=== PATIENT | female | born 2000 | race Caucasian/White ===

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

== ENCOUNTER 2022-08-24 13:20 | Emergency (ER) | payer BC, SELFPAY ==
--- NOTE | 2022-08-24 13:24 | ED.URI ---
HPI - URI/Sore Throat General Chief Complaint: Upper Respiratory Infection Stated Complaint: Sore Throat Time Seen by Provider: 08/24/22 13:24 Source: patient Mode of arrival: ambulatory Limitations: no limitations History of Present Illness HPI Narrative: Lexi is a 22-year-old female patient presenting to the clinic today with complaints sore throat x2 days. She reports no fever or chills. MD elicited complaint: sore throat and nasal congestion Related Data Home Medications Medication Instructions Recorded Confirmed No Home Medications 08/24/22 08/24/22 Allergies Allergy/AdvReac Type Severity Reaction Status Date / Time No Known Allergies Allergy Verified 08/24/22 13:33 Review of Systems Review of Systems: Pertinent positives per HPI. Patient denies any fever, chills, rash, headache, visual changes, dizziness, cough, shortness of breath, chest pain, palpitations, nausea, vomiting, diarrhea, constipation, abdominal pain, or any urinary issues. PMFSH Comments At the time of my signature, I reviewed and agree with the nursing past medical, surgical, social, and family history. There is no relevant family history pertinent to the patient complaint. Exam Narrative: General: Well-developed, well nourished, in no apparent distress Head: Normocephalic, atraumatic Eyes: Pupils equally round and reactive to light bilaterally, EOM intact, sclera and conjunctive clear, no discharge, lids normal Ears: TMs intact and clear, ear canals clear, no drainage, grossly hearing normal. Nose: Nares patent, clear nasal discharge, no inflammation, no sinus tenderness. Mouth: Oral pharynx without lesions or masses, good dentition, MMM. oropharynx red Neck: Supple, trachea midline, no enlargement of anterior or posterior cervical nodes, no thyroid masses or goiter palpable. Cardio: Regular rate and rhythm, s1 and s2 normal, no murmur appreciated. Resp: Clear to auscultation bilaterally, no rhonchi, rales, wheezing or rubs Course Course Emergency Course: Portions of this record may have been created with voice recognition software. Level of Care: Express Care Visit Vital Signs Vital signs: Vital Signs Temperature 36.7 C 08/24/22 13:30 Pulse Rate 72 08/24/22 13:30 Respiratory Rate 18 08/24/22 13:30 Blood Pressure 113/69 08/24/22 13:30 Pulse Oximetry 100 08/24/22 13:30 Temperature 36.7 C 08/24/22 13:30 Pulse Rate 72 08/24/22 13:30 Respiratory Rate 18 08/24/22 13:30 Blood Pressure 113/69 08/24/22 13:30 Pulse Oximetry 100 08/24/22 13:30 Vital signs reviewed MDM - URI/Sore Throat MDM Narrative Medical decision making narrative: At the time of visit patient is resting comfortably on the exam table. Strep screen was completed in the clinic today.Supportive measures were discussed with the patient she voiced understanding discharge instructions agrees to treatment plan. Differential Diagnosis Differential diagnosis: Likely upper respiratory infection, otitis media, sinusitis, viral infection, bronchitis, influenza, pharyngitis and other ( COVID) Lab Data Labs: Strep Screen Presumptive Negative *(Reference Range: Negative)* Discharge Plan Discharge Clinical Impression: Pharyngitis Qualifiers: Pharyngitis/tonsillitis etiology: unspecified etiology Qualified Code(s): J02.9 - Acute pharyngitis, unspecified Patient Disposition: Home, Self-Care Condition: Stable Instructions: Antibiotic Form, Pharyngitis (ED) Additional Instructions: Strep screen was negative in the clinic today. We will send strep culture to the lab if this comes back positive we will contact you will place you on antibiotics at that time. Increase fluids and stay well hydrated Tylenol/motrin for pain/fever Flonase and OTC antihistamines as directed Vicks vapor rub to open sinuses Sinus rinses for congestion Cepacol spray, co
[2022-08-24 13:30] VITALS: BP 113/69; PULSE 72; RESP 18; TEMP 36.7; O2SAT 100
== END 2022-08-24 14:00 | disposition home or self-care (01) ==
PROVIDERS: Emergency Provider Nurse Practitioner Family; PCP Nurse Practitioner Family
DX: J02.9 Acute pharyngitis, unspecified (principal)
CPT/HCPCS: 87081; 87880; 99213; G0463

== ENCOUNTER 2022-11-15 11:49 | Emergency (ER) | payer BC, SELFPAY ==
[2022-11-15 11:56] VITALS: BP 125/84; PULSE 88; RESP 14; TEMP 37.2; O2SAT 99
--- NOTE | 2022-11-15 12:20 | ED.FEMALEGU ---
HPI - Female Genitourinary General Chief complaint: Urogenital-Female Stated complaint: blood in urine Time Seen by Provider: 11/15/22 12:21 Source: patient, RN notes reviewed and old records reviewed Mode of arrival: ambulatory Limitations: no limitations History of Present Illness HPI Narrative: 22-year-old female who presents to [facility] Care with complaints of urinary burning, frequency, with suprapubic tenderness, some CVA tenderness and blood noted in her urine with symptoms starting this morning. Patient reports that she has taken some Ibuprofen for her discomfort with minimal decrease in her discomfort.Patient reports no vaginal drainage or any itching,denies any concern for STD exposure. Patient denies any nausea or vomiting or any diarrhea. MD elicited complaint: UTI Onset (ago): day(s) (this morning) Severity scale (1-10): 5 Vaginal discharge: none Treatment prior to arrival: NSAIDs Related Data Allergies Allergy/AdvReac Type Severity Reaction Status Date / Time No Known Allergies Allergy Verified 08/24/22 13:33 Review of Systems Review of Systems: CONSTITUTIONAL: Denies fever, chills, or sweats. CARDIOVASCULAR: Denies chest pain, palpitations, or edema. RESPIRATORY: Denies cough or dyspnea. GASTROINTESTINAL: Reports suprapubic tenderness, no nausea, vomiting, or diarrhea. GENITOURINARY: Reports dysuria, frequency, urgency. Reports flank pain and hematuria. SKIN: Denies rash or itching. MUSCULOSKELETAL: Reports lower back pain or myalgia. reports CVA tenderness, hematuria NEUROLOGIC: Denies headache All systems reviewed & are unremarkable except as noted in HPI and below PMFSH Past Medical History Medical History UTI (urinary tract infection) Social History Social History Smoking status: Never smoker Alcohol intake: current Alcohol use details: social Substance use type: does not use Gender identity (if verbalized by the patient): Female Comments At time of signature, agree with nursing past medical, surgical, social and family history. There is no relevant family history pertinent to the presenting complaint Exam Narrative: GENERAL: Well-appearing, well-nourished, and in no acute distress. HEAD: Normocephalic, atraumatic. NECK: Supple.no lymphadenopathy CHEST: Clear to auscultation. No respiratory distress. HEART: Regular rate and rhythm. No murmur heard. Normal peripheral pulses. ABDOMEN: Soft, supra pubic tenderness, nondistended, normal active bowel sounds. positive CVA tenderness EXTREMITIES: Normal range of motion. No edema. SKIN: Warm, dry, no rash. NEURO: No focal deficits. Alert and oriented x3. Course Course Emergency Course: Patient is aware of diagnosis, understands and agrees to treatment plan.? Anticipatory guidance given.? Patient agrees to follow-up as directed and is aware of reasons to seek care at the emergency department. Portions of this record may have been created with voice recognition software Level of Care: Express Care Visit Vital Signs Vital signs: Vital Signs Temperature 37.2 C 11/15/22 11:56 Pulse Rate 88 11/15/22 11:56 Respiratory Rate 14 11/15/22 11:56 Blood Pressure 125/84 11/15/22 11:56 Pulse Oximetry 99 11/15/22 11:56 Oxygen Delivery Room Air 11/15/22 11:56 Temperature 37.2 C 11/15/22 11:56 Pulse Rate 88 11/15/22 11:56 Respiratory Rate 14 11/15/22 11:56 Blood Pressure 125/84 11/15/22 11:56 Pulse Oximetry 99 11/15/22 11:56 Oxygen Delivery Room Air 11/15/22 11:56 MDM - Female Genitourinary MDM Narrative Medical decision making narrative: Exam findings and UA show no acute concerns or changes; patient is non-toxic appearing and is in no distress.? Patient is appropriate for outpatient treatment and follow-up. Differential Diagnosis Differential diagnosis: Likely urinary tract infection and cysti
== END 2022-11-15 12:37 | disposition home or self-care (01) ==
PROVIDERS: Emergency Provider Registered Nurse; PCP Nurse Practitioner Family
DX: N39.0 Urinary tract infection, site not specified (principal)
CPT/HCPCS: 81003; 87077; 87086; 87186; 99213; G0463

== ENCOUNTER 2023-02-03 13:20 | Emergency (ER) | payer BC, SELFPAY ==
[2023-02-03 13:25] VITALS: BP 137/69; PULSE 108; RESP 20; TEMP 37.4; O2SAT 100
--- NOTE | 2023-02-03 13:35 | ED.SKABFB ---
HPI - Skin/Abscess/Foreign Bdy General Chief complaint: Skin/Abscess/Foreign Body Stated complaint: Rash Source: patient and RN notes reviewed History of Present Illness HPI narrative: 22-year-old female presents urgent care with a rash x1 week. Patient states that it started out with a lesion to right lower leg and left forearm. Patient states she has associated itching at these areas and did scratch them. Patient states since then the blister and ?opened up. Pt has developed hive-like lesions to arms, legs, neck, and face. Denies any fevers, chills, vomiting, chest pain, or SOB. Pt has been using cortisone cream without relief. Denies any new medications, foods, lotions, or soaps. Pt does admit to having a dog who likes to roll around in the brush at her house. Related Data Allergies Allergy/AdvReac Type Severity Reaction Status Date / Time No Known Allergies Allergy Verified 02/03/23 13:33 Review of Systems Review of Systems: Pertinent positives and pertinent negatives per HPI. [facility] Past Medical History Medical History UTI (urinary tract infection) Social History Social History Smoking status: Never smoker Alcohol intake: current Alcohol use details: social Substance use type: does not use Gender identity (if verbalized by the patient): Female Comments At the time of my signature, I reviewed and agree with the nursing past medical, surgical, social, and family history. There is no relevant family history pertinent to the patient complaint. Exam Narrative: GENERAL: This is a well-nourished, well-developed patient, in no apparent distress. HEAD: normocephalic, atraumatic. EYES: Sclera clear/white. Vision is grossly intact. EARS: External ears normal, auditory canals clear and without drainage, TMs normal without perforation. Hearing grossly intact. NOSE: External nose normal with no obvious nasal discharge, nares without redness, no rhinorrhea. THROAT: Mucous membranes moist, posterior pharynx clear. NECK: Neck supple, non-tender without lymphadenopathy, masses or thyromegaly. CARDIOVASCULAR: Regular rate and rhythm without murmurs, gallops, or rubs. RESPIRATORY: Clear to auscultation. Breath sounds equal bilaterally. No wheezes, rales, or rhonchi. GASTROINTESTINAL: Abdomen soft, non-tender, nondistended. Bowel sounds are active. No hepato-splenomegaly, or palpable masses. No guarding. SKIN: various, erythremic, hives, and scabbed areas to body. 2 cm area noted to right lower leg and left FA. No drainage noted. no areas of induration noted. NEURO: awake, alert, and oriented to person, place and time. There were no obvious focal neurologic abnormalities. EXTREMITIES: No clubbing, cyanosis, or edema. No joint tenderness, effusion, or edema noted. BACK: Nontender without deformity or crepitus. No flank tenderness. Course Course Level of Care: Express Care Visit Vital Signs Vital signs: Vital Signs Temperature 99.4 F 02/03/23 13:25 Pulse Rate 108 H 02/03/23 13:25 Respiratory Rate 20 02/03/23 13:25 Blood Pressure 137/69 02/03/23 13:25 Pulse Oximetry 100 02/03/23 13:25 Oxygen Delivery Room Air 02/03/23 13:25 Temperature 99.4 F 02/03/23 13:25 Pulse Rate 108 H 02/03/23 13:25 Respiratory Rate 20 02/03/23 13:25 Blood Pressure 137/69 02/03/23 13:25 Pulse Oximetry 100 02/03/23 13:25 Oxygen Delivery Room Air 02/03/23 13:25 Reviewed MDM - Skin/Abscess/Foreign Bdy MDM Narrative Medical decision making narrative: Prevention is always better than treatment. Learn to identify poison junito, oak, and sumac and avoid it. Wear long sleeves, long pants, shoes, and socks. If you touched the plant, try to keep your hands away from your eyes, mouth, and face. Wash the skin thoroughly with soap and cool water as soon as possible. Scrub under the fingernails wit
[2023-02-03] MEDS: predniSONE 20 MG TABLET 60 MG PO (13:45)
== END 2023-02-03 13:48 | disposition home or self-care (01) ==
PROVIDERS: Emergency Provider Nurse Practitioner Family; PCP Nurse Practitioner Family
DX: L25.9 Unspecified contact dermatitis, unspecified cause (principal)
CPT/HCPCS: 99213; G0463; J7512

== ENCOUNTER 2023-04-18 12:39 | Emergency (ER) | payer MEDICAID, SELFPAY ==
[2023-04-18 12:44] VITALS: BP 123/82; PULSE 88; RESP 20; TEMP 37.1; O2SAT 100
--- NOTE | 2023-04-18 13:55 | ED.URI ---
HPI - URI/Sore Throat General Chief Complaint: Upper Respiratory Infection Stated Complaint: fever/nausea/aches Time Seen by Provider: 04/18/23 13:35 Source: patient, RN notes reviewed and old records reviewed Mode of arrival: ambulatory Limitations: no limitations History of Present Illness HPI Narrative: 23 year old female presents to [facility] care with complaints of headache,low grade fever yesterday, body aches and nausea with some diarrhea today. Patient reports that she was sent home from work today due to illness. Patient reports that she attended wedding and there have been some people who have turned up ill afterward. Patient concerned she was exposed to COVID. MD elicited complaint: rhinorrhea, nasal congestion and other (body aches and nausea, headache) Onset (ago): day(s) (day 2 of symptoms) Pain scale (0-10): 5 Able to tolerate fluids by mouth: Yes Treatments prior to arrival: acetaminophen Related Data Home Medications Medication Instructions Recorded Confirmed No Home Medications 04/18/23 04/18/23 Allergies Allergy/AdvReac Type Severity Reaction Status Date / Time No Known Allergies Allergy Verified 04/18/23 12:58 Review of Systems Review of Systems: CONSTITUTIONAL: Denies malaise, chills, sweats, or fever. EYES: Denies visual changes, redness, or discharge. ENT: Reports rhinorrhea, congestion, sinus pain,no otalgia and tickle in throat CARDIOVASCULAR: Denies chest pain, palpitations, or edema. RESPIRATORY: Reports cough.? Denies dyspnea. GASTROINTESTINAL: Denies abdominal pain, positive for nausea, no vomiting, positive for diarrhea SKIN: Denies rash or itching. MUSCULOSKELETAL: Denies myalgia. NEUROLOGIC: Reports headache. All systems reviewed & are unremarkable except as noted in HPI and below PMFSH Past Medical History Medical History (Updated 04/20/23 @ 08:11 by Lillie Worley NP) Anxiety UTI (urinary tract infection) Social History Social History Smoking status: Never smoker Alcohol intake: current Alcohol use details: social Substance use type: does not use Gender identity (if verbalized by the patient): Female Comments At time of signature, agree with nursing past medical, surgical, social and family history. There is no relevant family history pertinent to the presenting complaint Exam Narrative: GENERAL: Well-appearing, well-nourished, and in no acute distress. HEAD: Normocephalic EYES: PERRLA, conjunctivae clear ENT: Nares clear, turbinates edematous and erythematous, clear discharge. Mucous membranes moist. TM pearly rhodes with dull light reflex bilaterally; no tragal tenderness. Oropharynx erythematous without lesions. Tonsils not enlarged and without exudate, no drooling, no hoarseness, no trismus, uvula midline. NECK: Supple. No lymphadenopathy CHEST: Clear to auscultation, breath sounds equal. No wheezing, rhonchi, rales, or stridor. No respiratory distress, speaks in full sentences.SAO2 100% on room air HEART: Regular rate and rhythm. No murmur heard. SKIN: Warm, dry, no rash. NEURO: Alert and oriented x3. PSYCH: Normal mood and affect Course Course Emergency Course: Patient is aware of diagnosis, understands and agrees to treatment plan.? Anticipatory guidance given.? Patient agrees to follow-up as directed and is aware of reasons to seek care at the emergency department. Portions of this record may have been created with voice recognition software Level of Care: Express Care Visit Vital Signs Vital signs: Vital Signs Temperature 37.1 C 04/18/23 12:44 Pulse Rate 88 04/18/23 12:44 Respiratory Rate 04/18/23 12:44 Blood Pressure 123/82 04/18/23 12:44 Pulse Oximetry 100 04/18/23 12:44 Oxygen Delivery Room Air 04/18/23 12:44 Temperature 37.1 C 04/18/23 12:44 Pulse Rate 88 04/18/23 12:44 Respiratory Rate 04/18/23 12:4
== END 2023-04-18 14:08 | disposition home or self-care (01) ==
PROVIDERS: Emergency Provider Registered Nurse; PCP Nurse Practitioner Family
DX: J06.9 Acute upper respiratory infection, unspecified (principal); Z20.822 Contact with and (suspected) exposure to COVID-19
CPT/HCPCS: 87426; 87804; 99213; C9803; G0463

== ENCOUNTER 2024-02-29 12:02 | Emergency (ER) | payer BC, SELFPAY ==
[2024-02-29 12:10] VITALS: BP 113/71; PULSE 65; RESP 16; TEMP 36.7; O2SAT 99
--- NOTE | 2024-02-29 12:20 | ED.GENADULT ---
HPI - General Adult General Chief complaint: Nausea/Vomiting/Diarrhea Stated complaint: nausea/blisters in mouth/lip History of Present Illness HPI narrative: patient is a 24-year-old female, without significant past medical history, presents to urgent care with complaints 3 day history nausea, 1 incident of vomiting today 1 of symptom onset, with associated vesicular eruption in the vehicle mucosa refer her mouth. She has felt feverish slightly in the evenings but has not checked her temperature to confirm. She has a mildly sore throat. She denies cough but has had some slight rhinorrhea. She has no rash eruption to her palmar plantar surfaces, she denies any additional associated symptoms, she is drinking fluids well, she is urinating normally, she has not taken any medication for symptom relief. She denies chance of her her immunizations are up-to-date. 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 Related Data Allergies Allergy/AdvReac Type Severity Reaction Status Date / Time No Known Allergies Allergy Verified 04/18/23 12:58 Review of Systems Constitutional: Comments: Refer to HPI ENT: Comments: refer to HPI Gastrointestinal: Comments: refer to HPI [facility] Past Medical History Medical History Anxiety UTI (urinary tract infection) Social History Social History Smoking status: Never smoker Alcohol intake: current Alcohol use details: social Substance use type: does not use Gender identity (if verbalized by the patient): Female Exam Const: General: healthy appearing, no acute distress and alert Nutritional Appearance: thin Limitations: no limitations HENMT: Head: normal to inspection Ears: external ears normal and TM's normal bilaterally Face/Nose/Sinus: Normal external nose present Face and sinus: normal facial exam and sinuses nontender Mouth: Yes lip normal and Yes Abnormal oral and palatal mucosa present vesicles ( patient has several small vesicles noted to the of her mouth, a few sparsely noted to the buccal mucosa, tongue appears fair) Throat: uvula midline Other: mild pharyngeal erythema, no exudate, tonsils are not visible, uvula is midline, no trismus sublingual space is unremarkable on exam Eyes: Conjunctivae: conjunctivae normal Pupils: Equal, round and reactive pupils present EOM: EOMs intact bilaterally Neck: Neck: normal visual inspection, no lymphadenopathy and no meningeal signs Resp: Effort & Inspection: normal respiratory effort Auscultation: clear to auscultation bilaterally Cardio: Rate: regular rate Rhythm: regular rhythm GI: GI Palp: Yes Soft to palpation, No Tenderness to palpation present (GI), No Guarding due to palpation present (GI), No Rigid due to palpation, No Hernia present, No Palpable mass present and No Rebound tenderness present Auscultation: normal bowel sounds Skin: Rashes: no rashes Neuro: General: patient oriented x3, moves all extremities, no meningeal signs, no focal motor deficits and CN's II-XI intact bilaterally Cranial nerves: Yes Nystagmus not present Speech: normal speech Gait exam (Neuro): Normal gait present Course Course Emergency Course: patient's exam and history of presenting illness is consistent with a viral infection, including a viral stomatitis. Treatment is supportive. Patient encouraged to continue fluids at home, Tylenol ibuprofen as directed [id number] for discomfort. Will prescribe antiemetics for nausea. She is advised she may use [id number] Maalox and Children's Benadryl, 2.5 mils of each mixed together to swish and swallow for homemade Magic mouthwash or use Cepacol lozenges if needed. Patient to follow-up with her PCP in 7-10 days if symptoms are not resolving. Patient agreeable to plan. Level of Care: Express Care Visit ([id number]) Vital Signs Vital
== END 2024-02-29 12:30 | disposition home or self-care (01) ==
PROVIDERS: Emergency Provider Nurse Practitioner Family; PCP Nurse Practitioner Family
DX: K12.1 Other forms of stomatitis (principal)
CPT/HCPCS: 99213; G0463

== ENCOUNTER 2024-06-12 10:51 | Emergency (ER) | payer BC, SELFPAY ==
[2024-06-12 10:58] VITALS: BP 115/69; PULSE 110; RESP 16; TEMP 36.8; O2SAT 99
--- NOTE | 2024-06-12 12:07 | ED.URI ---
HPI - URI/Sore Throat General Chief Complaint: Upper Respiratory Infection Stated Complaint: Nausea/Congestion Source: patient, RN notes reviewed and old records reviewed Mode of arrival: ambulatory Limitations: no limitations History of Present Illness HPI Narrative: 24-year-old female who presents to [facility] with complaints of nausea and vomiting since yesterday with congestion, headache, and sore throat. Patient is 16 weeks and has taken Tylenol for her symptoms, denies any known fevers chills or sweats does report some body aches.. MD elicited complaint: cough, sore throat, rhinorrhea, nasal congestion and other (body aches) Onset (ago): day(s) (day 2 of symptoms) Pain scale (0-10): 5 Able to tolerate fluids by mouth: Yes Treatments prior to arrival: acetaminophen Related Data Home Medications Medication Instructions Recorded Confirmed vit no.95-ferrous 1 tablet PO DAILY 06/12/24 06/12/24 fumarate 28 mg-folic acid 800 mcg tablet () Allergies Allergy/AdvReac Type Severity Reaction Status Date / Time No Known Allergies Allergy Verified 06/12/24 12:01 Review of Systems Review of Systems: CONSTITUTIONAL:Reports malaise,no chills, sweats, or fever. EYES: Denies visual changes, redness, or discharge. ENT: Reports rhinorrhea, congestion, sinus pain,no otalgia and positive for sore throat. CARDIOVASCULAR: Denies chest pain, palpitations, or edema. RESPIRATORY: Reports no acute cough.? Denies dyspnea. GASTROINTESTINAL: Denies abdominal pain, states nausea, vomiting,no diarrhea, patient is 16 weeks SKIN: Denies rash or itching. MUSCULOSKELETAL: reports myalgia. NEUROLOGIC: Reports headache. All systems reviewed & are unremarkable except as noted in HPI and below PMFSH Past Medical History Medical History Anxiety UTI (urinary tract infection) Social History Social History Smoking status: Never smoker Alcohol intake: current Alcohol use details: social, no alcohol presently is Substance use type: does not use Gender identity (if verbalized by the patient): Female Comments At time of signature, agree with nursing past medical, surgical, social and family history. There is no relevant family history pertinent to the presenting complaint Exam Narrative: GENERAL: Well-appearing, well-nourished, and in no acute distress. HEAD: Normocephalic EYES: PERRLA, conjunctivae clear ENT: Nares clear, turbinates edematous and erythematous, clear discharge. Mucous membranes moist. TM pearly rhodes with dull light reflex bilaterally; no tragal tenderness. Oropharynx erythematous without lesions. Tonsils red not enlarged and without exudate, no drooling, no hoarseness, no trismus, uvula midline.post nasal drainage noted NECK: Supple. No lymphadenopathy CHEST: Clear to auscultation, breath sounds equal. No wheezing, rhonchi, rales, or stridor. No respiratory distress, speaks in full sentences. no acute cough SAO2 99% on room air HEART: Regular rate and rhythm. No murmur heard. SKIN: Warm, dry, no rash. NEURO: Alert and oriented x3. PSYCH: Normal mood and affect Course Course Emergency Course: Patient is aware of diagnosis, understands and agrees to treatment plan.? Anticipatory guidance given.? Patient agrees to follow-up as directed and is aware of reasons to seek care at the emergency department. Portions of this record may have been created with voice recognition software Level of Care: Express Care Visit Vital Signs Vital signs: Vital Signs Temperature 36.8 C 06/12/24 10:58 Pulse Rate 110 H 06/12/24 10:58 Respiratory Rate 16 06/12/24 10:58 Blood Pressure 115/69 06/12/24 10:58 Pulse Oximetry 99 06/12/24 10:58 Oxygen Delivery Room Air 06/12/24 10:58 Temperature 36.8 C 06/12/24 10:58 Pulse Rate 110 H 06/12/24 10:58 Respiratory Rate 16 06/12/24 10:58 Blood Pressure 115/69 06/12/24 10:58 Pulse Oximetry 99 06/12/24 10:58 Oxygen Delivery Room Air 06/12/24 10:58 Reviewed MDM - URI/Sore Throat MDM Narrative Medical decision making narrative: Differential diagnosis considered: [place] virus, strep pharyngitis, allergic rhinitis, upper respiratory tract infection, sinusitis, rhinosinusitis, nasopharyngitis. viral pharyngitis, otitis media, otitis externa, pneumonia, bronchitis, viral cough syndrome, viral syndrome, and influenza.? Exam findings show no acute concerns or changes; patient is non-toxic appearing and is in no distress.? Patient is appropriate for outpatient treatment and follow-up. Differential Diagnosis Differential diagnosis: Likely upper respiratory infection, sinusitis, viral infection, pharyngitis and other (strep pharyngitis) Medical Records Attestation: I reviewed the patient's medical records. Lab Data Attestation: I reviewed the patient's lab results. Lab results narrative: strep screen negative, culture sent Labs: Lab Results 06/12/24 Range/Units 14:31 POC Grp A Strep Screen Negative (Negative) Critical Care Time Critical Care Time Critical Care Time: No Discharge Plan Discharge Clinical Impression: URI, acute Patient Disposition: Home, Self-Care Condition: Stable Instructions: Upper Respiratory Infection (ED) Additional Instructions: Increase fluids especially juices and water [id number] cough and cold medicine of your choice for your symptoms Tylenol for any fever pain heat to the face 20-30 minutes 4-6 times a day for pain Salt water gargles, throat lozenges or throat sprays as desired If your symptoms persist, change or worsen significantly before you can contact your personal physician then please, without delay, go to the emergency department for further evaluation. Follow-up with PCP in 7-10 days or sooner if needed List of medications that are safe with given to patient Prescriptions: No Action PNV cmb#95-ferrous fumarate-FA [] 28 mg iron- 800 mcg tablet 1 tablet PO DAILY Follow-up/Referrals: Mir,Jessie Landeros [employer]CREEN [employer]INTING MACHINE OPERATOR HELPER [Primary Care Provider] - Time of Disposition: 12:12 Quality [place] Scale Eyes: Open Verbal: Oriented and Alert Motor: Follows Commands [place] Total Score: 15
[2024-06-12 14:32] LABS: EDSTREPNEGPOS1 Negative (Negative)
== END 2024-06-12 12:15 | disposition home or self-care (01) ==
PROVIDERS: Emergency Provider Registered Nurse; PCP Nurse Practitioner Family
DX: O99.512 Diseases of the respiratory system complicating pregnancy, second trimester (principal); Z3A.16 16 weeks gestation of pregnancy; J06.9 Acute upper respiratory infection, unspecified
CPT/HCPCS: 87081; 87880; 99213; G0463